=== PATIENT | female | born 1940 | race Caucasian/White ===

== ENCOUNTER → 2017-01-24 | Outpatient (CLI) | payer OTHER, MEDICARE ==
[~2017-01-24] MED LIST: CALCIUM; FLAGYL500 MG PO; ZYRTEC
== END ==
LOC: RAD 02:55
DX: Z12.31 Encounter for screening mammogram for malignant neoplasm of breast (principal)

== ENCOUNTER → 2018-01-25 | Outpatient (CLI) | payer OTHER, MEDICARE | LOC: RAD 03:06 | DX: Z12.31 Encounter for screening mammogram for malignant neoplasm of breast (principal) ==

== ENCOUNTER 2018-08-28 12:44 | Emergency (ER) | payer OTHER, MEDICARE ==
[~2018-08-28] VITALS: Ht 167.6 cm; Wt 81.7 kg
--- NOTE | 2018-08-28 13:00 | EKG ---
[address] [place] [address] ELECTROCARDIOGRAM REPORT Name: CATRINA ELIZABETH Room #: [facility]#: [id number] Admission: Attend Phys: Discharge: Date of : 44 Report #: [id number] THIS REPORT FOR: //name// [facility] ED Test Date: 2018-08-28 Test Time: 12:53:28 Pat Name: CATRINA ELIZABETH Department: Room: Gender: F Nursery Technician: STEPHANIE : 1940 Requested By: Norman Mcguire Order Number: [id number] MD: Tank Garcia Measurements Intervals [place] Rate: 60 P: 60 MS: 165 QRS: 13 QRSD: 96 T: 36 QT: 420 QTc: 420 Interpretive Statements Sinus rhythm Probable anteroseptal infarct, old No previous ECG available for comparison Electronically Signed On 08-28-2018 13:00:01 COORDINATE MEASURING MACHINE OPERATOR by Tank Garcia [email or web address] <ELECTRONICALLY SIGNED> By: Tank Garcia MD, [facility] 08/28/18 1300 1253 1253 Tank Garcia MD, FACC /EPI
[2018-08-28 13:28] LABS: HEMATOCRIT 36.7 % (37.0-47.0); HEMOGLOBIN 12.3 gm/dL (12.0-15.0); MCH 28.8 pg (26.0-34.0); MCHC 33.6 g/dL (28.0-37.0); MCV 85.8 fL (80.0-100.0); PLATELET COUNT 251 thou/uL (150-400); RBC 4.28 mil/uL (4.20-5.00); RDW 15.4 % (10.5-14.5)
[2018-08-28 13:40] LABS: ANION GAP 11 mmol/L (7-16); BUN 18 mg/dL (7-18); CALCIUM 9.7 mg/dL (8.5-10.1); CHLORIDE 103 mmol/L (98-107); CO2 25 mmol/L (21-32); CREATININE 0.8 mg/dL (0.6-1.0); GLUCOSE 103 mg/dL (74-106); SODIUM 139 mmol/L (136-145)
[2018-08-28 13:44] LABS: ALBUMIN 3.8 g/dL (3.4-5.0); DIRECT BILIRUBIN < 0.1 mg/dL (<0.1-0.3); LIPASE 96 U/L (73-393); SGOT 22 U/L (15-37); SGPT 21 U/L (30-65); TOTAL BILIRUBIN 0.3 mg/dL (<0.1-1.0); TOTAL PROTEIN 7.1 g/dL (6.4-8.2)
[2018-08-28 13:51] LABS: TROPONIN-I <0.06 ng/mL (<0.06)
[2018-08-28 14:14] LABS: ABSOLUTE NEUTROPHILS 3.7 thou/uL (1.4-8.2); ANISOCYTOSIS 1+
[2018-08-28 14:15] LABS: HYPOCHROMASIA 1+
[2018-08-28] MEDS ORDERED: CARAFATE 1 GM TA1 G1 PO (14:47)
[2018-08-28] MEDS ORDERED: TRAMADOL 50 MG50 MG PO (14:47)
[2018-08-28] MEDS ORDERED: ZOFRAN ODT4 MG PO (14:47)
[2018-08-28] MEDS ORDERED: PROTONIX40 MG PO (14:47)
[2018-08-28 15:30] VITALS: BP 162/54
== END 2018-08-28 22:42 | disposition home or self-care (01) ==
LOC: ER 12:44
PROVIDERS: Emergency Medicine
DX: R07.89 Other chest pain (principal); M19.90 Unspecified osteoarthritis, unspecified site; Z90.49 Acquired absence of other specified parts of digestive tract; Z90.710 Acquired absence of both cervix and uterus; Z88.0 Allergy status to penicillin; Z88.2 Allergy status to sulfonamides; Z88.6 Allergy status to analgesic agent

== ENCOUNTER → 2019-01-29 | Outpatient (CLI) | payer OTHER, MEDICARE ==
[~2019-01-29] MED LIST changes: +CARAFATE 1 GM TA1 G1 PO; +PROTONIX40 MG PO; +TRAMADOL 50 MG50 MG PO; +ZOFRAN ODT4 MG PO
== END ==
LOC: BC 10:05
DX: Z12.31 Encounter for screening mammogram for malignant neoplasm of breast (principal)

== ENCOUNTER → 2020-02-08 | Outpatient (CLI) | payer OTHER, MEDICARE | LOC: BC 11:53 | PROVIDERS: ATTEND Neuromusculoskeletal Medicine & OMM | DX: Z12.31 Encounter for screening mammogram for malignant neoplasm of breast (principal) ==

== ENCOUNTER → 2020-02-14 | Outpatient (CLI) | payer OTHER, MEDICARE | LOC: MRI 09:00 | PROVIDERS: ATTEND Neuromusculoskeletal Medicine & OMM | DX: M51.26 Other intervertebral disc displacement, lumbar region (principal); M89.38 Hypertrophy of bone, other site; M47.816 Spondylosis without myelopathy or radiculopathy, lumbar region; M48.07 Spinal stenosis, lumbosacral region ==

== ENCOUNTER → 2020-07-03 | Outpatient (CLI) | payer OTHER, MEDICARE | LOC: NUC 08:58 | PROVIDERS: ATTEND Neuromusculoskeletal Medicine & OMM | DX: M81.0 Age-related osteoporosis without current pathological fracture (principal) ==

== ENCOUNTER → 2021-02-16 | Outpatient (CLI) | payer OTHER, MEDICARE | LOC: BC 09:26 → PAIN 13:25 | PROVIDERS: ATTEND Neuromusculoskeletal Medicine & OMM | DX: Z12.31 Encounter for screening mammogram for malignant neoplasm of breast (principal) ==

== ENCOUNTER → 2021-08-24 | Outpatient (CLI) | payer OTHER, MEDICARE | LOC: RAD 11:36 | PROVIDERS: ATTEND Family Medicine | DX: M16.12 Unilateral primary osteoarthritis, left hip (principal) ==